=== PATIENT | male | born 1985 | race Caucasian/White ===

== ENCOUNTER 2018-09-07 15:25 | Inpatient (IN) ==
[2018-09-07] MEDS ORDERED: Bisacodyl 10 MG Supp RECTAL PRN (19:18)
[2018-09-07] MEDS ORDERED: Temazepam 15 MG Capsule PO PRN (19:18)
[2018-09-07] MEDS ORDERED: Naloxone Inj 0.4 MG/ML Vial IV.PUSH PRN (19:18)
[2018-09-07] MEDS ORDERED: Acetaminophen 325 MG Tablet PO PRN (19:18)
[2018-09-07] MEDS ORDERED: Morphine Sulfate Inj 2 MG/ML Vial IV.PUSH PRN (19:22)
[2018-09-07] MEDS ORDERED: Pantoprazole Inj 40 MG Vial IV.PUSH SCH (20:00)
[2018-09-07] MEDS: Sod Chloride 0.9% Inj 1,000 ML IV.CONT SCH (22:38)
--- NOTE | 2018-09-07 22:53 | P.HPIM ---
History of Present Illness Service: [facility] hospitalists . Primary Care Physician: UNKNOWN (relocated from [place]) Chief Complaint: Epigastric pain and near syncope History of Present Illness: Mr. Grullon is a pleasant 33 y/o male with no significant medical history who recently relocated back to [place] from [place] and presented to the ER in [place] on 09/07/2018 complaining of epigastric pain, nausea with vomiting, diarrhea, and near syncope. The patient was found to be in a junctional rhythm with a heart rate in the 40s accompanied by diaphoresis in the emergency room and he was treated with atropine. His heart rate improved but he had some nonspecific EKG tracings that concerned the physician. Dr. Wasserman was consulted from the emergency room and requested transfer of the patient to the [facility] under the hospitalist service for admission. The patient is seen in the CDU. He reports that he ate some spicy food on 09/06 and experienced epigastric discomfort this morning which was followed by nausea, vomiting, and diarrhea for several episodes. During one episode, the patient was walking to the bathroom when he broke out in a sweat and nearly passed out. He was able to make it back to the bed and lie down before he fainted. After his arrived home, she witnessed him experience another episode similar to this and decided he should seek emergent medical treatment. He denies ever losing consciousness. He denies any chest pain, palpitations, or shortness of breath prior to near-syncope. He denies any recent illness other than what is stated above. He denies any recent fever, chills, or cough. He denies any family history of cardiac problems but indicates that his father was an alcoholic and in his 40s of uncertain causes. Review of Systems All other systems reviewed negative except as stated in HPI PMFSH - History History Provided By: Patient, Family Member - Medical History Medical History: Medical History (Last Reviewed 09/08/18 @ 02:36 by TRACI Vaz) Patient denies medical problems - Surgical History Surgical History: Surgical History (Last Reviewed 09/08/18 @ 01:55 by TRACI Vaz) Hx of hernia repair - Family History Family History: Family History (Last Updated 09/08/18 @ 01:49 by TRACI Vaz) Mother Family history of arthritis Father Family history of early Family history of alcohol abuse Family history of peptic ulcer - Social History I have reviewed the patient's Social History: Yes - Tobacco History Smoking Status: Current every day smoker Tobacco Type: E-Cigarettes - Alcohol History How Often Do You Have a Drink Containing Alcohol: Never - Substance Use History Substance History: Active Abuse - Substance Use Type Marijuana Frequency: once or twice a week Medications and Allergies Active Medications: Active Medications Acetaminophen (Tylenol) 650 mg PO Q4H PRN PRN Reason: Temp > 100.4 Bisacodyl (Dulcolax Supp) 10 mg RECTAL DAILY PRN PRN Reason: SEVERE CONSITIPATION Sodium Chloride (Ns Inj) 1,000 mls @ 125 mls/hr IV.CONT .Q8H [facility] Last Admin: 09/07/18 22:38 Dose: 125 mls/hr Morphine Sulfate (Morphine Inj) 2 mg IV.PUSH Q3H PRN PRN Reason: pain > 4 Naloxone HCl (Narcan Inj) 0.4 mg IV.PUSH UNSCH PRN PRN Reason: SEE LABEL COMMENTS Ondansetron HCl (Zofran Inj) 4 mg IV.PUSH Q6H PRN PRN Reason: NAUSEA OR VOMITING Pantoprazole Sodium (Protonix Inj) 40 mg IV.PUSH Q24H [facility] Last Admin: 09/07/18 22:35 Dose: 40 mg Sennosides (Senokot) 17.2 mg PO Q12H PRN PRN Reason: Moderate Constipation Temazepam (Restoril) 15 mg PO HS PRN PRN Reason: INSOMNIA Allergies Allergy/AdvReac Type Severity Reaction Status Date / Time No Known Allergies Allergy Verified 09/07/18 15:33 Home Medications Medication Instructions Recorded Confirmed Type No Known Home Medications 09/07/18 09/07/18 History Exam Vital signs: Vital Signs 09/07/18 21:51 Temperature 98.8 F Pulse Rate 67 Respiratory Rate 18 Blood Pressure 115/57 L Pulse Oximetry 96 Narrative: GENERAL: This is a well-nourished, well-developed patient, in no apparent distress. SKIN: No rashes, ecchymoses or lesions. Cool and dry. HEAD: Atraumatic. Normocephalic. EYES: No scleral icterus. No injection or drainage. ENT: Nose without bleeding, purulent drainage. NECK: Trachea midline. No JVD or lymphadenopathy. CARDIOVASCULAR: Slow normal with some skipped beats without murmurs, gallops, or rubs. RESPIRATORY: Clear to auscultation. Breath sounds equal bilaterally. No wheezes , rales, or rhonchi. GASTROINTESTINAL: Abdomen soft, nondistended. No guarding. Epigastric tenderness noted with palpation. MUSCULOSKELETAL: Extremities without clubbing, cyanosis, or edema. No calf tenderness. NEUROLOGICAL: Awake and alert. Motor and sensory grossly within normal limits. Normal speech. . Caprini VTE Risk Assessment Caprini VTE Risk Assessment: No/Low Risk (score <= 1) Caprini Risk Assessment Model: Point Value = 1 Point Value = 2 Point Value = 3 Point Value = 5 Age 41-60 Minor surgery BMI > 25 kg/m2 Swollen legs Varicose veins or History of unexplained or recurrent spontaneous Oral contraceptives or hormone replacement Sepsis (< 1 month) Serious lung disease, including pneumonia (< 1 month) Abnormal pulmonary function Acute myocardial infarction Congestive heart failure (< 1 month) History of inflammatory bowel disease Medical patient at bed rest Age 61-74 Arthroscopic surgery Major open surgery (> 45 min) Laparoscopic surgery (> 45 min) Malignancy Confined to bed (> 72 hours) Immobilizing plaster cast Central venous access Age >= 75 History of VTE Family history of VTE Factor V Leiden Prothrombin [id number] Lupus anticoagulant Anticardiolipin antibodies Elevated serum homocysteine Heparin-induced thrombocytopenia Other congenital or acquired thrombophilia Stroke (< 1 month) Elective arthroplasty Hip, pelvis, or leg fracture Acute spinal cord injury (< 1 month) Prophylaxis Regimen: Total Risk Factor Score Risk Level Prophylaxis Regimen 0-1 Low Early ambulation 2 Moderate Order ONE of the following: *Sequential Compression Device (SCD) *Heparin 5000 units SQ BID 3-4 Higher Order ONE of the following medications: *Heparin 5000 units SQ TID *Enoxaparin/Lovenox 40 mg SQ daily (WT < 150 kg, CrCl > 30 mL/min) *Enoxaparin/Lovenox 30 mg SQ daily (WT < 150 kg, CrCl > 10-29 mL/min) *Enoxaparin/Lovenox 30 mg SQ BID (WT < 150 kg, CrCl > 30 mL/min) AND/OR *Sequential Compression Device (SCD) 5 or more Highest Order ONE of the following medications: *Heparin 5000 units SQ TID (Preferred with Epidurals) *Enoxaparin/Lovenox 40 mg SQ daily (WT < 150 kg, CrCl > 30 mL/min) *Enoxaparin/Lovenox 30 mg SQ daily (WT < 150 kg, CrCl > 10-29 mL/min) *Enoxaparin/Lovenox 30 mg SQ BID (WT < 150 kg, CrCl > 30 mL/min) AND *Sequential Compression Device (SCD) Assessment and Plan - Plan Mr. Grullon is a pleasant 33 y/o male with no significant medical history who recently relocated back to [place] from [place] and presented to the ER in [place] on 09/07/2018 complaining of epigastric pain, nausea with vomiting, diarrhea, and near syncope. The patient was found to be in a junctional rhythm with a heart rate in the 40s accompanied by diaphoresis in the emergency room and he was treated with atropine. His heart rate improved but he had some nonspecific EKG tracings that concerned the physician. Dr. Wasserman was consulted from the emergency room and requested transfer of the patient to the [facility] under the hospitalist service for admission. Epigastric pain, nausea/vomiting/diarrhea -suspect viral gastroenteritis -CT of the abdomen and pelvis without IV contrast is negative for acute process -Zofran 4 mg IV every 6 hours as needed nausea -No further episodes of diarrhea -Protonix 40 mg IV push -IVF hydration with NS at 125 cc/hr Symptomatic bradycardia - concern for sick sinus syndrome -patient had a junctional rhythm in the 40's and was near syncopal and diaphoretic in the ER with this rhythm -required treatment with Atropine in ED -sinus rhythm followed administration of Atropine - HR 90's -Dr. Ken was consulted by [place] ER doctor and, per ER MD notes, suspects vagal response as culprit -patient with some minimal sinus pauses noted on telemetry while in CDU and HR seems to be trending down again -given history of father with early of uncertain cause, transferred pt to CVICU with orders for PRN atropine for symptomatic bradycardia and pacer pads nearby -serial EKGs (personally reviewed - see above) and cardiac enzymes (negative thus far) to r/o ACS -continuous cardiac telemetry Nicotine abuse -advised cessation of e-cigarettes DVT prophylaxis -early ambulation Discussed Condition With: Dr. Evans, patient, patient's , and RN .
[2018-09-07] MEDS ORDERED: Atropine Inj 1 MG/ML Vial IV.PUSH PRN (22:59)
[2018-09-08 00:40] LABS: Creatine Kinase 81 U/L (39-308)
[2018-09-08 05:52] LABS: Baso % (Auto) 0.3 % (0.0-2.0); Eos # (Auto) 0.1 th/mm3 (0.0-0.4); Eos % (Auto) 0.8 % (0.0-4.0); Hemoglobin 13.2 gm/dL (13.0-17.0); Lymph # (Auto) 1.5 th/mm3 (1.0-4.8); Lymph % (Auto) 16.3 % (9.0-44.0); Mean Corpuscular HGB Conc 33.8 % (32.0-36.0); Mean Corpuscular Hemoglobin 28.7 pg (27.0-34.0); Mean Corpuscular Volume 84.7 fL (80.0-100.0); Mean Platelet Volume 9.1 fL (7.0-11.0); Mono # (Auto) 0.6 th/mm3 (0.0-0.9); Mono % (Auto) 6.6 % (0.0-8.0); Neut # (Auto) 7.1 th/mm3 (1.8-7.7); Platelet Count 212 th/mm3 (150-450); Red Cell Distribution Width 13.7 % (11.6-17.2); White Blood Count 9.3 th/mm3 (4.0-11.0)
[2018-09-08 06:15] LABS: Anion Gap 9 meq/L (5-15); Blood Urea Nitrogen 16 mg/dL (7-18); Calcium 7.9 mg/dL (8.5-10.1); Chloride 107 meq/L (98-107); Glomerular Filtration Rate Greater Than 89 mL/min (>89); Glucose,Random 90 mg/dL (74-106); Potassium 3.5 meq/L (3.5-5.1); Sodium 141 meq/L (136-145)
[2018-09-08 06:22] LABS: Creatine Kinase 73 U/L (39-308)
[2018-09-08] MEDS: Sod Chloride 0.9% Inj 1,000 ML IV.CONT SCH (06:32)
[2018-09-08 07:38] VITALS: RESP 16
--- NOTE | 2018-09-08 09:00 | P.PNIM ---
Subjective Interval history: Pt seen and examined for f/u gastroenteritis and near syncope. Patient reports feeling much better. Hasn't had any episodes of vomiting or diarrhea since prior to coming to the ED. Abdominal pain has resolved. Has gotten out of bed a few times and no complaints of feeling like he is going to pass out. Reports he has passed out several times in the past mostly from the sight of blood. Denies any personal or family history of cardiac problems. Denies CP, palpitations, lightheadedness, dizziness, shortness of breath. Would like to hopefully be able to go home today. Physical Exam Vital signs: Vital Signs 09/07/18 21:51 09/07/18 23:22 09/08/18 00:00 Temperature 98.8 F 98.4 F Pulse Rate 67 64 63 Respiratory Rate 18 20 Blood Pressure 115/57 L 128/68 Pulse Oximetry 96 97 09/08/18 00:45 09/08/18 01:18 09/08/18 03:00 Temperature 98.3 F 98.4 F Pulse Rate 73 73 77 Respiratory Rate 18 18 Blood Pressure 126/69 139/71 Pulse Oximetry 97 97 09/08/18 07:00 Temperature 97.9 F Pulse Rate 65 Respiratory Rate 16 Blood Pressure 127/70 Pulse Oximetry 92 L Intake & Output 09/07/18 09/08/18 09/08/18 18:59 06:59 18:59 Intake Total 120 / 120 1000 / 1000 Output Total 200 / 200 Balance -80 / -80 1000 / 1000 Weight 93 kg Intake: IV 1000 / 1000 NS Inj 1,000 ML @ 125 mls/hr IV 1000 / 1000 .CONT .Q8H [facility] Rx#:[id number] Oral 120 / 120 Output: Urine 200 / 200 Narrative: GENERAL: WN, WD pleasant male resting in bed in NAD. SKIN: Warm and dry. Large tattoo over back. HEENT: AT/NC. Pupils equal and round. No scleral icterus. MMM. HEART: RRR no m/r/g. LUNGS: CTAB without wheezes or crackles. ABDOMEN: +BS, soft, NT, ND. EXTREMITIES: No LE edema. 2+ pedal pulses. NEURO: Awake and alert. PSYCH: Appropriate mood and affect. Results - Labs CBC & Chem 7: 09/08/18 04:39 09/08/18 04:39 Laboratory Results - last 24 hr 09/08/18 09/08/18 09/08/18 00:06 04:39 04:39 WBC 9.3 RBC 4.60 Hgb 13.2 Hct 39.0 MCV 84.7 MCH 28.7 MCHC 33.8 RDW 13.7 Plt Count 212 MPV 9.1 Neut % (Auto) 76.0 H Lymph % (Auto) 16.3 Arroyo % (Auto) 6.6 Eos % (Auto) 0.8 Baso % (Auto) 0.3 Neut # (Auto) 7.1 Lymph # (Auto) 1.5 Arroyo # (Auto) 0.6 Eos # (Auto) 0.1 Baso # (Auto) 0.0 WBC Differential . Differential Comment Auto diff final Sodium 141 Potassium 3.5 D Chloride 107 Carbon Dioxide 25.0 Anion Gap 9 BUN 16 Creatinine 0.79 Estimated GFR Greater than 89 Random Glucose 90 Calcium 7.9 L D Total Creatine Kinase 81 73 Troponin I Less than 0.02 L Less than 0.02 L Assessment and Plan - Assessment (1) Gastroenteritis Code(s): K52.9 - Noninfective gastroenteritis and colitis, unspecified Status : Acute (2) Symptomatic bradycardia Code(s): R00.1 - Bradycardia, unspecified Status: Acute - Plan 33 year old male with no significant medical problems aside from vasovagal episodes in the past admitted for gastroenteritis and near syncope, found to have bradycardia with junctional rhythm in the ED. 1. Gastroenteritis - resolved - Pt presented with epigastric pain, nausea, vomiting, and diarrhea after eating spicy [place] food - WBC 14.7 in the ED and has since normalized - CT A/P negative - All symptoms have resolved - ADAT 2. Symptomatic bradycardia, near syncope - Required treatment with atropine in the ED when patient became diaphoretic and near syncopal with HR in the 40s - Likely a vasovagal response to acute gastroenteritis - Awaiting cardiology eval - Serial troponins negative - No events on telemetry - EKG showing NSR with Q-waves in V1 and V2. No ST elevation or depression DVT prophylaxis: low-risk, ambulatory Code Status: FULL Discussed Condition With: Patient and his Discharge Planning: Hopefully today if cleared by cardiology
[2018-09-08 11:13] VITALS: BP 150/82; PULSE 66; TEMP 97.6; O2SAT 94
--- NOTE | 2018-09-08 13:21 | ECHRPT ---
Indication: SYNCOPE CONCLUSIONS Normal left ventricular size. Wall thickness is normal. The left ventricular systolic function is normal with an estimated ejection fraction of 55%. Trace mitral valve regurgitation. The estimated pulmonary arterial pressure is 33 mmHg. There is trace tricuspid valve regurgitation. BP: / HR: Rhythm: Sinus MEASUREMENTS (Male / Female) Normal Values Technical Quality:Fair 2D ECHO LV Diastolic Diameter PLAX 5.9 cm 4.2 - 5.9 / 3.9 - 5.3 cm LV Systolic Diameter PLAX 4.6 cm IVS Diastolic Thickness 0.8 cm 0.6 - 1.0 / 0.6 - 0.9 cm LVPW Diastolic Thickness 0.8 cm 0.6 - 1.0 / 0.6 - 0.9 cm LV Relative Wall Thickness 0.3 RV Internal Dim ED PLAX 2.0 cm LVOT Diameter 2.2 cm LA Systolic Diameter LX 3.2 cm 3.0 - 4.0 / 2.7 - 3.8 cm DOPPLER AV Peak Velocity 145.0 cm/s AV Peak Gradient 8.4 mmHg LVOT Peak Velocity 108.0 cm/s LVOT Peak Gradient 4.7 mmHg AV Area Cont Eq pk 2.8 cm Mitral E Point Velocity 78.5 cm/s Mitral A Point Velocity 86.4 cm/s Mitral E to A Ratio 0.9 LV E' Lateral Velocity 13.8 cm/s Mitral E to LV E' Lateral Ratio 5.7 LV E' Septal Velocity 9.4 cm/s Mitral E to LV E' Septal Ratio 8.4 TR Peak Velocity 239.0 cm/s TR Peak Gradient 22.8 mmHg Right Atrial Pressure 10.0 mmHg Pulmonary Artery Systolic Pressu 32.8 mmHg Right Ventricular Systolic Press 32.8 mmHg PV Peak Velocity 133.0 cm/s PV Peak Gradient 7.1 mmHg FINDINGS LEFT VENTRICLE Normal left ventricular size. Wall thickness is normal. The left ventricular systolic function is normal with an estimated ejection fraction of 55%. RIGHT VENTRICLE Normal right ventricular size and systolic function. LEFT ATRIUM The left atrial size is normal. RIGHT ATRIUM The right atrial size is normal. ATRIAL SEPTUM Normal atrial septal thickness without atrial level shunting by limited color doppler interrogation. AORTA The aortic root and proximal ascending aorta are normal in size on limited imaging. MITRAL VALVE Trace mitral valve regurgitation. AORTIC VALVE Trileaflet aortic valve. No aortic valve stenosis or regurgitation. TRICUSPID VALVE There is trace tricuspid valve regurgitation. The estimated pulmonary arterial pressure is 33 mmHg. PULMONARY VALVE No pulmonary valve regurgitation or stenosis. VESSELS The inferior vena cava is normal in size. PERICARDIUM No pericardial effusion. Garrett Ham MD, FACC (Electronically Signed) Final Date:08 September 2018 13:20
--- NOTE | 2018-09-08 17:16 | ECG ---
Date Performed: 09/08/2018 Time Performed: 06:14:36 PTAGE: 33 years EKG: Sinus rhythm Possible septal infarct - age undetermined Abnormal ECG PREVIOUS TRACING : 09/08/2018 00.53 Since the previous tracing, no significant change noted DOCTOR: Garrett Ham Interpretating Date/Time 09/08/2018 17:14:46
--- NOTE | 2018-09-08 17:29 | ECG ---
Date Performed: 09/08/2018 Time Performed: 00:53:42 PTAGE: 33 years EKG: Sinus bradycardia with sinus arrhythmia Leftward axis Possible septal infarct - age undeter mined Inferior T wave changes are nonspecific Abnormal ECG Since the PREVIOUS TRACING , no significant change noted DOCTOR: Garrett Ham Interpretating Date/Time 09/08/2018 17:27:50
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
== END 2018-09-08 14:30 | disposition home or self-care (01) ==
LOC: NEDDLT 15:25 → NEPFCDU 15:25 → HCVI 09-08 00:41
PROVIDERS: ADMIT Family Medicine; ATTEND Family Medicine